=== PATIENT | female | born 1955 | race Caucasian/White ===

== ENCOUNTER → 2016-06-12 | Outpatient (CLI) | payer OTHER ==
[~2016-06-12] MED LIST: ACET-1600 PO; OMNIPAQUE 350 MG/ML, 150 ML BOTTLE ONE; [UNRECOGNIZED DRUG - REMARK]
== END | disposition home or self-care (01) ==
LOC: CFH 13:51
PROVIDERS: ATTEND Specialist
DX: C82.19 Follicular lymphoma grade II, extranodal and solid organ sites (principal); R59.9 Enlarged lymph nodes, unspecified; K11.8 Other diseases of salivary glands; Z90.49 Acquired absence of other specified parts of digestive tract
CPT/HCPCS: 70491; 71260; 74177; Q9967

== ENCOUNTER → 2016-08-24 | Outpatient (CLI) | payer OTHER ==
[~2016-08-24] MED LIST changes: -OMNIPAQUE 350 MG/ML, 150 ML BOTTLE ONE
== END | disposition home or self-care (01) ==
LOC: CFH 14:30
PROVIDERS: ATTEND Specialist
DX: J44.9 Chronic obstructive pulmonary disease, unspecified (principal); C82.19 Follicular lymphoma grade II, extranodal and solid organ sites
CPT/HCPCS: 71020

== ENCOUNTER → 2016-08-29 | Outpatient (CLI) | payer OTHER | END | disposition home or self-care (01) | LOC: CFH 14:55 | PROVIDERS: ATTEND Specialist | DX: Z12.31 Encounter for screening mammogram for malignant neoplasm of breast (principal) | CPT/HCPCS: G0202 ==

== ENCOUNTER → 2016-11-06 | Outpatient (CLI) | payer OTHER ==
[~2016-11-06] MED LIST changes: +OMNIPAQUE 350 MG/ML, 150 ML BOTTLE ONE
== END | disposition home or self-care (01) ==
LOC: CFH 11:09
PROVIDERS: ATTEND Specialist
DX: R59.0 Localized enlarged lymph nodes (principal); C82.19 Follicular lymphoma grade II, extranodal and solid organ sites; M47.896 Other spondylosis, lumbar region; K76.0 Fatty (change of) liver, not elsewhere classified; Z90.49 Acquired absence of other specified parts of digestive tract; Z90.710 Acquired absence of both cervix and uterus
CPT/HCPCS: 70491; 71260; 74177; Q9967

== ENCOUNTER 2016-11-21 08:31 | Day surgery (SDC) | payer OTHER ==
[~2016-11-21] VITALS: Ht 172.7 cm; Wt 58.9 kg
[~2016-11-21 08:31] MED LIST changes: -OMNIPAQUE 350 MG/ML, 150 ML BOTTLE ONE
[2016-11-21 09:07] VITALS: BP 168/95
[2016-11-21] MEDS ORDERED: SODIUM CHLORIDE 0.9% 1,000 ML IV SCH (09:10)
[2016-11-21] MEDS ORDERED: FENTANYL PF 100 MCG/2ML ONE ×2 (09:48)
[2016-11-21] MEDS ORDERED: FLUMAZENIL 0.1 MG/1 ML, 5ML ONE (09:48)
[2016-11-21] MEDS ORDERED: MIDAZOLAM 1 MG/ML, 5ML ONE (09:48)
[2016-11-21] MEDS ORDERED: NALOXONE 1 MG/ML, 2ML ONE (09:48)
[2016-11-21] MEDS ORDERED: LIDOCAINE 1%, 20ML ONE (09:56)
== END 2016-11-21 12:05 ==
LOC: OUT 08:31
PROVIDERS: ATTEND Specialist
DX: C82.5 Diffuse follicle center lymphoma (principal)
CPT/HCPCS: 49180; 77012; 88305; 99156; 99157; J2250; J3010; J3490; J7030; J2310

== ENCOUNTER → 2017-01-11 | Outpatient (CLI) | payer OTHER | END | disposition home or self-care (01) | LOC: CFH 07:51 | PROVIDERS: ATTEND Internal Medicine Gastroenterology | DX: D50.9 Iron deficiency anemia, unspecified (principal); Z90.49 Acquired absence of other specified parts of digestive tract; Z98.0 Intestinal bypass and anastomosis status | CPT/HCPCS: 76705 ==

== ENCOUNTER → 2017-03-02 | Outpatient (CLI) | payer OTHER ==
[~2017-03-02] MED LIST changes: +OMNIPAQUE 350 MG/ML, 100ML BOTTLE ONE
== END | disposition home or self-care (01) ==
LOC: CFH 10:49
PROVIDERS: ATTEND Specialist
DX: C82.19 Follicular lymphoma grade II, extranodal and solid organ sites (principal); N28.1 Cyst of kidney, acquired; M48.56XA Collapsed vertebra, not elsewhere classified, lumbar region, initial encounter for fracture; M51.36 Other intervertebral disc degeneration, lumbar region; D73.89 Other diseases of spleen; Z90.49 Acquired absence of other specified parts of digestive tract
CPT/HCPCS: 71260; 74177; 82565; Q9967

== ENCOUNTER → 2017-06-06 | Outpatient (CLI) | payer OTHER ==
[~2017-06-06] MED LIST changes: +GADOBUTROL 7.5 MMOL/7.5 ML PFS ONE
== END ==
LOC: CFH 09:36
PROVIDERS: ATTEND Specialist
DX: C82.19 Follicular lymphoma grade II, extranodal and solid organ sites (principal); M48.56XA Collapsed vertebra, not elsewhere classified, lumbar region, initial encounter for fracture; M47.816 Spondylosis without myelopathy or radiculopathy, lumbar region; R91.8 Other nonspecific abnormal finding of lung field
CPT/HCPCS: 71260; 72157; 72158; 74177; A9585; Q9967

== ENCOUNTER 2017-06-19 06:26 | Day surgery (SDC) | payer OTHER ==
[~2017-06-19] VITALS: Ht 172.7 cm; Wt 54.6 kg
[~2017-06-19 06:26] MED LIST changes: -GADOBUTROL 7.5 MMOL/7.5 ML PFS ONE; -OMNIPAQUE 350 MG/ML, 100ML BOTTLE ONE
[2017-06-19 06:59] VITALS: BP 149/77
[2017-06-19] MEDS ORDERED: SODIUM CHLORIDE 0.9% 1,000 ML IV SCH (07:00)
[2017-06-19] MEDS ORDERED: LEVO25TA4 PO (07:02)
[2017-06-19] MEDS ORDERED: LIDOCAINE-MPF 2% ,5ML ONE (07:52)
[2017-06-19] MEDS ORDERED: MIDAZOLAM 1 MG/ML, 5ML ONE ×2 (08:07→08:08)
[2017-06-19] MEDS ORDERED: FENTANYL PF 100 MCG/2ML ONE (08:07)
[2017-06-19] MEDS ORDERED: NALOXONE 1 MG/ML, 2ML ONE (08:08)
[2017-06-19] MEDS ORDERED: FLUMAZENIL 0.1 MG/1 ML, 5ML ONE (08:08)
== END 2017-06-19 10:30 ==
LOC: OUT 06:26
PROVIDERS: ATTEND Specialist
DX: C82.10 Follicular lymphoma grade II, unspecified site (principal)
CPT/HCPCS: 49180; 77012; 88305; 99156; J2250; J3010; J3490; J7030; 88341; 88342; 99157; G0461; J2310

== ENCOUNTER 2017-07-05 07:48 | Day surgery (SDC) | payer OTHER ==
[~2017-07-05] VITALS: Ht 172.7 cm; Wt 54.4 kg
[~2017-07-05 07:48] MED LIST changes: +LEVO25TA4 PO
[2017-07-05 08:28] VITALS: BP 155/95
[2017-07-05] MEDS ORDERED: ALLO300T PO (08:31)
[2017-07-05] MEDS ORDERED: SODIUM CHLORIDE 0.9% 1,000 ML IV SCH (08:31)
[2017-07-05] MEDS ORDERED: CEFAZOLIN PMX 1GM/50ML 50 ML IV ONE (09:00)
[2017-07-05] MEDS ORDERED: LIDOCAINE 2%, 20ML ONE (09:09)
[2017-07-05] MEDS ORDERED: MIDAZOLAM 1 MG/ML, 5ML ONE (09:27)
[2017-07-05] MEDS ORDERED: FENTANYL PF 100 MCG/2ML ONE (09:27)
== END 2017-07-05 11:45 ==
LOC: OUT 07:48
PROVIDERS: ATTEND Specialist
DX: Z45.2 Encounter for adjustment and management of vascular access device (principal); C82.19 Follicular lymphoma grade II, extranodal and solid organ sites; Z87.39 Personal history of other diseases of the musculoskeletal system and connective tissue
CPT/HCPCS: 36561; 76937; 77001; 99156; 99157; C1894; J0690; J2250; J3010; J3490; C1788; J1642; J7030

== ENCOUNTER → 2017-11-15 | Outpatient (CLI) | payer OTHER ==
[~2017-11-15] MED LIST changes: +ALLO300T PO; +OMNIPAQUE 350 MG/ML, 150 ML BOTTLE ONE
== END | disposition home or self-care (01) ==
LOC: CFH 08:35
PROVIDERS: ATTEND Specialist
DX: S32.039A Unspecified fracture of third lumbar vertebra, initial encounter for closed fracture (principal); R91.1 Solitary pulmonary nodule; M89.9 Disorder of bone, unspecified; X58.XXXA Exposure to other specified factors, initial encounter; Y93.89 Activity, other specified; Y92.89 Other specified places as the place of occurrence of the external cause; Y99.8 Other external cause status; K83.8 Other specified diseases of biliary tract
CPT/HCPCS: 70491; 71260; 74177; Q9967

== ENCOUNTER → 2017-11-29 | Outpatient (CLI) | payer OTHER ==
[~2017-11-29] MED LIST changes: -OMNIPAQUE 350 MG/ML, 150 ML BOTTLE ONE
== END | disposition home or self-care (01) ==
LOC: CFH 10:45
PROVIDERS: ATTEND Specialist
DX: Z12.31 Encounter for screening mammogram for malignant neoplasm of breast (principal)
CPT/HCPCS: 77067

== ENCOUNTER 2018-07-12 14:11 | Outpatient (CLI) | payer BC | END 2018-07-12 23:59 | disposition home or self-care (01) | LOC: CFH 14:11 | PROVIDERS: ATTEND Internal Medicine Hematology & Oncology | DX: C82.19 Follicular lymphoma grade II, extranodal and solid organ sites (principal) | CPT/HCPCS: 70450 ==

== ENCOUNTER 2018-09-05 11:06 | Outpatient (CLI) | payer BC ==
[2018-09-05] MEDS ORDERED: OMNIPAQUE 350 MG/ML, 150 ML BOTTLE ONE (12:40)
[2018-09-18] MEDS ORDERED: NONE PER PT (07:42)
== END 2018-09-05 23:59 | disposition home or self-care (01) ==
LOC: CFH 11:06
PROVIDERS: ATTEND Internal Medicine Hematology & Oncology
DX: C82.19 Follicular lymphoma grade II, extranodal and solid organ sites (principal)
CPT/HCPCS: 70491; 71260; 74177; Q9967

== ENCOUNTER 2018-09-18 07:02 | Day surgery (SDC) | payer BC ==
[~2018-09-18] VITALS: Ht 172.7 cm; Wt 57.4 kg
[2018-09-18 07:42] VITALS: BP 146/82
== END 2018-09-18 11:50 | disposition home or self-care (01) ==
LOC: OUT 07:02 → EDSTATUS 09:00 → OUT 11:50
PROVIDERS: ATTEND Internal Medicine Hematology & Oncology
DX: C82.19 Follicular lymphoma grade II, extranodal and solid organ sites (principal)
CPT/HCPCS: 38505; 77012; 88305; 88341; 88342; 99156; 99157; J2250; J3010; J7030; J2310

== ENCOUNTER 2019-02-07 17:29 | Emergency (ER) | payer BC ==
[~2019-02-07] VITALS: Ht 172.7 cm; Wt 54.2 kg
[~2019-02-07 17:29] MED LIST changes: +NONE PER PT
--- NOTE | 2019-02-07 19:18 | NUR ---
PT MOVED TO BED FROM [facility]
[2019-02-07] MEDS ORDERED: LENA20CA PO (19:37)
--- NOTE | 2019-02-07 19:40 | NUR ---
Pt alert and oriented. NAD. Pt reports starting oral cipro this AM but then was called by MD and stated she needed a stronger IV antibiotic. Pt reports diarrhea but denies nausea/vomiting/fevers. Pt in gown and on pulse ox/HR monitor. Call light within reach.
[2019-02-07] MEDS ORDERED: SODIUM CHLORIDE 0.9% IV ONE (20:18)
[2019-02-07] MEDS ORDERED: CEFTAZIDIME IV ONE (20:18)
--- NOTE | 2019-02-07 20:19 | NUR ---
consulted with md about abx and length of stay. per md awaiting a call back from pts oncologist on which abx to give.
--- NOTE | 2019-02-07 20:20 | NUR ---
PIV placed with first set of culture draw. Lab at bedside for second set of cultures.
[2019-02-07] MEDS ORDERED: VANCOMYCIN PMX 1GM/200ML 200 ML IV ONE (20:30)
[2019-02-07] MEDS ORDERED: VANCOMYCIN PER PHARMACY MC PRN (20:30)
[2019-02-07 20:38] LABS: ANION GAP 10 mmol/L (5-15); CALCIUM 8.1 mg/dL (8.5-10.1); CHLORIDE 108 mmol/L (98-107); CREATININE 1.32 mg/dL (0.55-1.02)
[2019-02-07 20:40] LABS: MEAN CORPUSCULAR HEMOGLOBIN 27.6 pg (27.0-34.8); MEAN CORPUSCULAR HGB CONC 32.4 g/dL (32.4-35.8); MEAN CORPUSCULAR VOLUME 85.1 fL (80-100); MEAN PLATELET VOLUME 9.2 fL (7.4-10.4); PLATELET COUNT 270 x10^3/uL (130-400); RED BLOOD COUNT 3.22 x10^6/uL (3.82-5.3); RED CELL DISTRIBUTION WIDTH 18.4 % (9.6-15.2)
[2019-02-07 20:53] LABS: BASOPHILS % (AUTO) 0 % (0-1); EOSINOPHILS # (AUTO) 0.17 x10^3/uL (0-0.4); EOSINOPHILS % (AUTO) 3 % (1-7); LYMPHOCYTES # (AUTO) 1.02 x10^3/uL (1-3.4); LYMPHOCYTES % (AUTO) 16 % (22-44); MD SCAN; MONOCYTES % (AUTO) 11 % (2-9); NEUTROPHILS # (AUTO) 4.56 x10^3/uL (1.8-6.8); NEUTROPHILS % (AUTO) 71 % (42-75)
[2019-02-07] MEDS ORDERED: SODIUM CHLORIDE FLUSH 10ML SYR IVF ONE (21:00)
--- NOTE | 2019-02-07 21:00 | NUR ---
abx now infusing
[2019-02-07 21:45] VITALS: BP 93/46
--- NOTE | 2019-02-07 21:46 | NUR ---
Pt resting on gurney with IV antibiotics and fluids going. Pt denies needs at this time. Call light in place
[2019-02-07] MEDS ORDERED: POTASSIUM CHLORIDE 20 MEQ TAB.ER.PRT ONE (21:49)
--- NOTE | 2019-02-07 21:55 | NUR ---
PT UP TO RESTROOM AT THIS TIME FOR UA. PT AMBULATES WITH STEADY GAIT.
[2019-02-07] MEDS ORDERED: POTASSIUM CHLORIDE 20 MEQ TAB.ER.PRT PO ONE (22:00)
[2019-02-07 22:19] LABS: MICROSCOPIC AUTO
[2019-02-07 22:25] LABS: CULTURE INDICATED? YES
== END 2019-02-07 22:46 | disposition home or self-care (01) ==
LOC: ED 22:15
DX: N30.00 Acute cystitis without hematuria (principal); E87.6 Hypokalemia; C85.90 Non-Hodgkin lymphoma, unspecified, unspecified site
CPT/HCPCS: 36415; 71045; 80048; 81001; 82040; 83605; 85025; 87040; 87086; 96365; 96368; 99284; J0713; J3370

== ENCOUNTER 2020-05-11 13:24 | Outpatient (CLI) | payer MEDICARE ==
[~2020-05-11 13:24] MED LIST changes: +ASCO500T9 PO; +AZIT500T10 PO; +CHOL500045 PO; +DEXA1TAB5 PO; +DEXA6TAB PO; +DOXY100C2 PO; +DOXY100T PO; +LENA20CA PO; +MELA5TAB14 PO; +PANT40TA6 PO; +THIA100T67 PO; +ZINC220C7 PO
[2020-05-11] MEDS ORDERED: OMNIPAQUE 350 MG/ML, 150 ML BOTTLE ONE (14:40)
== END 2020-05-11 23:59 | disposition home or self-care (01) ==
LOC: RAD 13:24
PROVIDERS: ATTEND Internal Medicine Hematology & Oncology
DX: C82.18 Follicular lymphoma grade II, lymph nodes of multiple sites (principal); M48.56XA Collapsed vertebra, not elsewhere classified, lumbar region, initial encounter for fracture; M50.222 Other cervical disc displacement at C5-C6 level; M50.323 Other cervical disc degeneration at C6-C7 level; Z79.899 Other long term (current) drug therapy
CPT/HCPCS: 70491; 71260; 74177; J1642; Q9967